=== PATIENT | female | born 2000 | race Hispanic/Latino ===

== ENCOUNTER 2024-01-26 15:43 | Outpatient (CLI) | payer BC | END 2024-01-26 15:44 | disposition home or self-care (01) | LOC: DTY/OP 15:43 | PROVIDERS: ATTEND Physician Assistant | DX: E28.2 Polycystic ovarian syndrome (principal); E66.8 Other obesity; Z68.37 Body mass index [BMI] 37.0-37.9, adult; Z71.3 Dietary counseling and surveillance | CPT/HCPCS: 97802 ==